=== PATIENT | male | born 1980 | race Caucasian/White ===

== ENCOUNTER 2022-09-07 12:22 | Emergency (ER) | payer BC ==
[~2022-09-07] VITALS: Ht 182.9 cm; Wt 115.7 kg
== END 2022-09-07 15:56 | disposition home or self-care (01) ==
LOC: ER 12:22
DX: S50.811A Abrasion of right forearm, initial encounter (principal); X58.XXXA Exposure to other specified factors, initial encounter; Y93.89 Activity, other specified; Y92.89 Other specified places as the place of occurrence of the external cause; Y99.9 Unspecified external cause status